=== PATIENT | male | born 1955 | race Two or more races ===

== ENCOUNTER 2016-12-05 12:30 | Outpatient (CLI) | payer MEDICARE, OTHER | END 2016-12-05 23:59 | disposition home or self-care (01) | LOC: WOU 12:30 | PROVIDERS: ATTEND Surgery | DX: R22.2 Localized swelling, mass and lump, trunk (principal); L91.8 Other hypertrophic disorders of the skin; Z93.3 Colostomy status; R23.4 Changes in skin texture; Z86.19 Personal history of other infectious and parasitic diseases; F03.90 Unspecified dementia, unspecified severity, without behavioral disturbance, psychotic disturbance, mood disturbance, and anxiety; Z87.891 Personal history of nicotine dependence; Z85.038 Personal history of other malignant neoplasm of large intestine; L98.0 Pyogenic granuloma | CPT/HCPCS: 88305-TC; 88312-TC; A6402; J3490 ==

== ENCOUNTER 2016-12-12 13:00 | Outpatient (CLI) | payer MEDICARE, OTHER | END 2016-12-12 23:59 | disposition home or self-care (01) | LOC: WOU 13:00 | PROVIDERS: ATTEND Surgery | DX: L98.0 Pyogenic granuloma (principal); L91.8 Other hypertrophic disorders of the skin; Z93.3 Colostomy status; R23.4 Changes in skin texture; B94.8 Sequelae of other specified infectious and parasitic diseases; Z85.038 Personal history of other malignant neoplasm of large intestine; Z87.891 Personal history of nicotine dependence | CPT/HCPCS: A6402; G0463 ==

== ENCOUNTER 2016-12-19 13:35 | Outpatient (CLI) | payer MEDICARE, OTHER | END 2016-12-19 23:59 | disposition home or self-care (01) | LOC: WOU 13:35 | PROVIDERS: ATTEND Surgery | DX: Z09 Encounter for follow-up examination after completed treatment for conditions other than malignant neoplasm (principal); L91.8 Other hypertrophic disorders of the skin; Z93.3 Colostomy status; R23.4 Changes in skin texture; B94.8 Sequelae of other specified infectious and parasitic diseases; Z85.038 Personal history of other malignant neoplasm of large intestine; Z87.891 Personal history of nicotine dependence | CPT/HCPCS: G0463 ==